=== PATIENT | male | born 1945 | race Caucasian/White ===

== ENCOUNTER 2017-02-02 08:04 | Day surgery (SDC) | payer MEDICARE ==
[~2017-02-02] VITALS: Ht 172.7 cm; Wt 83.9 kg
[~2017-02-02 08:04] MED LIST: ACETYLCHOLINE OPHTH SOLN 1% 2ML (MIOCHOL-E) As Ordered ONE; AMLO10TA2 PO; ASPI1TAB PO; ATOR40TA75 PO; BALANCED SALT IRRIGATION SOLUTION 500ML BAG (FOR OR EYE MACHINE) As Ordered ONE; CEFUROXIME 1MG/0.1ML INTRACAMERAL INJ As Ordered ONE; DUOVISC (0.50ML VISCOAT/0.55ML PROVISC) OPHTH KIT As Ordered ONE; FINA5TAB2 PO; LIDOCAINE 0.75%/EPINEPHRINE 0.025% IN BSS 1ML SYR INTRACAMERAL (OR ONLY) As Ordered ONE; MIDAZOLAM INJ 2 MG/2 ML VIAL (J2250) As Ordered ONE; OFLOXACIN 0.3 % (OCUFLOX) OPTH SOL 5ML XX ONE; PHENYLEPHRINE 2.5% OPHTH SOL 2ML XX ONE; POVIDONE-IODINE 5% OPHTH PREP SOL 30ML As Ordered ONE; PROPARACAINE 0.5% OPHTH SOL 15ML XX ONE; TRIAMTERENE-HCTZ PO; TROPICAMIDE 1% OPHTH SOLN 2ML XX ONE; fentaNYL 100 MCG/2 ML INJECTION (J3010) As Ordered ONE
[2017-02-02] MEDS ORDERED: LR 1,000 ML IV ONE (08:15)
[2017-02-02 11:05] VITALS: BP 121/72
--- NOTE | 2017-02-05 08:39 | RO ---
DATE OF PROCEDURE: 02/02/2017 PREOPERATIVE DIAGNOSIS: Visually significant nuclear sclerotic cataract left eye. POSTOPERATIVE DIAGNOSIS: Visually significant nuclear sclerotic cataract left eye. PROCEDURE: Cataract extraction with use of phacoemulsification, and placement of intraocular lens, AU00T0, 23.0 D, left eye. SURGEON: Aldo Daniel DO EVALUATOR: ANESTHESIA: Local with monitored anesthesia care (MAC). COMPLICATIONS: None. POSTOPERATIVE CONDITION: Stable. INDICATION FOR SURGERY: Blurred vision left eye affecting patient's activities of daily living. DESCRIPTION OF PROCEDURE: The patient was seen in the preoperative area and properly identified. The correct operative eye was identified and marked. Attention was turned to that eye. The patient received topical antibiotics in the preoperative area. The patient then received topical dilating drops consisting of Tropicamide and Phenylephrine. The patient was then transferred to the operating room. The correct side was re-identified. The patient received topical anesthetics and antibiotics on the surface of the eye. The eye was prepped and draped in a sterile fashion. The upper and lower eyelids were isolated with Tegaderm tape, and the lids were held open with an adjustable speculum. Using a sideport blade, a paracentesis incision was made. Intraocular preservative-free lidocaine was then injected into the anterior chamber. Viscoelastic was then injected into the anterior chamber through the paracentesis. Using a 2.65 mm sharp-tipped keratome, the anterior chamber was entered via a temporal clear corneal incision. A continuous curvilinear capsulorrhexis was created with the aid of a 26g cystotome and utrata forceps. Hydrodissection was performed with balanced salt solution (BSS) on a blunt cannula until the nucleus was freely mobile. The crystalline lens was phacoemulsified and aspirated. Additional cohesive viscoelastic was placed into the capsular bag to deepen it. An AU00T0, 23.0 D lens was placed into the capsular bag and confirmed by visualizing the continuous curvilinear capsulorrhexis. Additional irrigation and aspiration was used to remove cortical material and remaining viscoelastic. The clear corneal incision was hydrated with BSS on a blunt cannula. The lens was well positioned. The incisions were then tested for leaks and found to be negative. The eye was then palpated for appropriate pressure and adjusted accordingly with BSS. The eyelid speculum was carefully removed. A shield was placed over the eye. The patient tolerated the procedure well and was discharged to the recovery unit in a stable condition. KAL
[2017-03-23] MEDS ORDERED: MELO15TA4 PO (08:40)
== END 2017-02-02 11:14 | disposition home or self-care (01) ==
LOC: M SDC 08:04
PROVIDERS: ATTEND Ophthalmology
DX: H25.12 Age-related nuclear cataract, left eye (principal); I10 Essential (primary) hypertension; E78.5 Hyperlipidemia, unspecified; Z79.82 Long term (current) use of aspirin; Z79.899 Other long term (current) drug therapy
CPT/HCPCS: 66984; J2250; J3010; V2632

== ENCOUNTER → 2017-02-16 | Day surgery (SDC) | payer MEDICARE ==
[~2017-02-16] VITALS: Ht 172.7 cm; Wt 83.9 kg
[~2017-02-16] MED LIST changes: +HEALON DUET (HEALON 10MG/ML 0.55ML & HEALON ENDOCOAT 30MG/ML 0.85ML) As Ordered ONE; +LIDOCAINE 0.5% SDV INJ 50 ML VIAL SQ ONE; +LR 1,000 ML IV ONE; +LR 500 ML ONE; +MELO15TA4 PO; +OFLOXACIN 0.3 % (OCUFLOX) OPTH SOL 5ML OD ONE; -OFLOXACIN 0.3 % (OCUFLOX) OPTH SOL 5ML XX ONE; +PHENYLEPHRINE 2.5% OPHTH SOL 2ML OD ONE; -PHENYLEPHRINE 2.5% OPHTH SOL 2ML XX ONE; +PROPARACAINE 0.5% OPHTH SOL 15ML OD ONE; -PROPARACAINE 0.5% OPHTH SOL 15ML XX ONE; +TROPICAMIDE 1% OPHTH SOLN 2ML OD ONE; -TROPICAMIDE 1% OPHTH SOLN 2ML XX ONE
[2017-02-16 10:49] VITALS: BP 165/95
--- NOTE | 2017-02-17 15:28 | RO ---
DATE OF PROCEDURE: 02/16/2017 PREOPERATIVE DIAGNOSIS: Visually significant nuclear sclerotic cataract right eye. POSTOPERATIVE DIAGNOSIS: Visually significant nuclear sclerotic cataract right eye. PROCEDURE: Cataract extraction with use of phacoemulsification, and placement of intraocular lens, AU00T0 23.5 D, right eye. SURGEON: Aldo Daniel DO SEMICONDUCTORS WAFER BREAKER: ANESTHESIA: Local with monitored anesthesia care (MAC). COMPLICATIONS: None. POSTOPERATIVE CONDITION: Stable. INDICATION FOR SURGERY: Blurred vision right eye affecting patient's activities of daily living. DESCRIPTION OF PROCEDURE: The patient was seen in the preoperative area and properly identified. The correct operative eye was identified and marked. Attention was turned to that eye. The patient received topical antibiotics in the preoperative area. The patient then received topical dilating drops consisting of Tropicamide and Phenylephrine. The patient was then transferred to the operating room. The correct side was re-identified. The patient received topical anesthetics and antibiotics on the surface of the eye. The eye was prepped and draped in a sterile fashion. The upper and lower eyelids were isolated with Tegaderm tape, and the lids were held open with an adjustable speculum. Using a sideport blade, a paracentesis incision was made. Intraocular preservative-free lidocaine was then injected into the anterior chamber. Viscoelastic was then injected into the anterior chamber through the paracentesis. Using a 2.6 mm sharp-tipped keratome, the anterior chamber was entered via a temporal clear corneal incision. A continuous curvilinear capsulorrhexis was created with the aid of a 26g cystotome and utrata forceps. Hydrodissection was performed with balanced salt solution (BSS) on a blunt cannula until the nucleus was freely mobile. The crystalline lens was phacoemulsified and aspirated. Additional cohesive viscoelastic was placed into the capsular bag to deepen it. An AU00T0, 23.5 D was placed into the capsular bag and confirmed by visualizing the continuous curvilinear capsulorrhexis. Additional irrigation and aspiration was used to remove cortical material and remaining viscoelastic. The clear corneal incision was hydrated with BSS on a blunt cannula. The lens was well positioned. The incisions were then tested for leaks and found to be negative. The eye was then palpated for appropriate pressure and adjusted accordingly with BSS. The eyelid speculum was carefully removed. A shield was placed over the eye. The patient tolerated the procedure well and was discharged to the recovery unit in a stable condition. KAL
== END | disposition home or self-care (01) ==
LOC: M SDC 10:10
PROVIDERS: ATTEND Ophthalmology
DX: H25.11 Age-related nuclear cataract, right eye (principal); I10 Essential (primary) hypertension; E78.5 Hyperlipidemia, unspecified; Z79.82 Long term (current) use of aspirin; Z79.899 Other long term (current) drug therapy
CPT/HCPCS: 66984; J2250; J3010; V2632

== ENCOUNTER → 2017-03-20 | Outpatient (REF) | payer MEDICARE ==
[~2017-03-20] MED LIST changes: -ACETYLCHOLINE OPHTH SOLN 1% 2ML (MIOCHOL-E) As Ordered ONE; -BALANCED SALT IRRIGATION SOLUTION 500ML BAG (FOR OR EYE MACHINE) As Ordered ONE; -CEFUROXIME 1MG/0.1ML INTRACAMERAL INJ As Ordered ONE; -DUOVISC (0.50ML VISCOAT/0.55ML PROVISC) OPHTH KIT As Ordered ONE; -HEALON DUET (HEALON 10MG/ML 0.55ML & HEALON ENDOCOAT 30MG/ML 0.85ML) As Ordered ONE; -LIDOCAINE 0.5% SDV INJ 50 ML VIAL SQ ONE; -LIDOCAINE 0.75%/EPINEPHRINE 0.025% IN BSS 1ML SYR INTRACAMERAL (OR ONLY) As Ordered ONE; -LR 1,000 ML IV ONE; -LR 500 ML ONE; -MIDAZOLAM INJ 2 MG/2 ML VIAL (J2250) As Ordered ONE; -OFLOXACIN 0.3 % (OCUFLOX) OPTH SOL 5ML OD ONE; -PHENYLEPHRINE 2.5% OPHTH SOL 2ML OD ONE; -POVIDONE-IODINE 5% OPHTH PREP SOL 30ML As Ordered ONE; -PROPARACAINE 0.5% OPHTH SOL 15ML OD ONE; -TROPICAMIDE 1% OPHTH SOLN 2ML OD ONE; -fentaNYL 100 MCG/2 ML INJECTION (J3010) As Ordered ONE
== END ==
LOC: M LAB REF 13:16
PROVIDERS: ATTEND Emergency Medicine
DX: L82.0 Inflamed seborrheic keratosis (principal)

== ENCOUNTER 2017-03-24 11:47 | Day surgery (SDC) | payer MEDICARE ==
[~2017-03-24] VITALS: Ht 170.2 cm; Wt 83.0 kg
[2017-03-24] MEDS ORDERED: LR 1,000 ML IV ONE (12:00)
[2017-03-24] MEDS ORDERED: LIDOCAINE 1% SDV INJ 30 ML VIAL As Ordered ONE (12:47)
[2017-03-24] MEDS ORDERED: fentaNYL 100 MCG/2 ML INJECTION (J3010) As Ordered ONE (13:14)
[2017-03-24] MEDS ORDERED: MIDAZOLAM INJ 2 MG/2 ML VIAL (J2250) As Ordered ONE (13:14)
[2017-03-24] MEDS ORDERED: LIDOCAINE 2% INJ 100 MG/5 ML SDV (FOR ANES.) As Ordered ONE (13:56)
[2017-03-24] MEDS ORDERED: PROPOFOL 200 MG/20 ML VIAL As Ordered ONE (13:56)
[2017-03-24 15:10] VITALS: BP 143/77
--- NOTE | 2017-03-24 16:13 | RO ---
DATE OF PROCEDURE: 03/24/2017 PREPROCEDURE DIAGNOSIS: Unexplained syncope. POSTPROCEDURE DIAGNOSIS: Unexplained syncope. FINDINGS: Unexplained syncope. PROCEDURE: Implantation of Biotronik implantable loop recorder. SURGEON: Ji Edwards MD CAMP COOK: None. ANESTHESIA: Lidocaine 1% local (approximately 7-1/2 mL) 1% and monitored anesthetic care. No specimens. Estimated blood loss: Less than 1 mL. No blood products replaced. No drains. No complications. DESCRIPTION OF PROCEDURE: The patient was prepped and draped over the left anterior chest. Lidocaine 1% was used for local anesthetic. An incision approximately 1-1/2 cm in length was made with a #15 blade in the third left interspace. The insertion tool tunnel tool was then used in an approximately 45-degree oblique direction (left lateral-caudal) to tunnel in the subcutaneous fat but parallel to the skin. The tunnel tool was then removed and then the insertion tool with loop recorder was placed into the pocket. The plastic insertion tool was removed leaving the loop recorder in place. The initial R wave amplitude was 1.66 millivolts. The deep layer was then closed using individual sutures consisting of #2-0 Vicryl. The skin was then approximated using a continuous suture consisting of #4-0 Biosyn as the subcutaneous layer and this was used to just approximate the skin. Next, two layers of Dermabond was applied. Next, the Biosyn suture was removed. Once the Dermabond was dried, Mastisol was placed above and below the incision and several Steri-Strips were applied crosswise across the incision. The patient tolerated the procedure well without any immediate complications. The implanted loop recorder implanted was a [employer] BioMonitor 2-AF with reference number [id number] and serial number [id number]. Copy To: Dr. Pedro Flowers
== END 2017-03-24 15:15 | disposition home or self-care (01) ==
LOC: M SDC 11:47
PROVIDERS: ATTEND Internal Medicine Cardiovascular Disease
DX: R55 Syncope and collapse (principal); I10 Essential (primary) hypertension; E78.5 Hyperlipidemia, unspecified; Z79.82 Long term (current) use of aspirin; Z79.899 Other long term (current) drug therapy; N40.0 Benign prostatic hyperplasia without lower urinary tract symptoms
CPT/HCPCS: 33282; C1764; J0690; J2250; J3010

== ENCOUNTER 2018-10-03 12:27 | Day surgery (SDC) | payer MEDICARE ==
[~2018-10-03] VITALS: Ht 170.2 cm; Wt 88.5 kg
[~2018-10-03 12:27] MED LIST changes: -AMLO10TA2 PO; +AMLO10TA5 PO; -ASPI1TAB PO; +ASPI81TA26 PO; +FURO20TA2 PO; +IRON325T2 PO; +LR 1,000 ML IV ONE; +MELO15TA28 PO; -MELO15TA4 PO; +WARF-23 PO; +ceFAZolin SOD 1 GM in D5W MINI-BAG PLUS 50 ML IV ONE
[2018-10-03] MEDS ORDERED: LIDOCAINE 1% SDV INJ 30 ML VIAL As Ordered ONE (13:10)
[2018-10-03 13:18] LABS: INR 1.48; PROTHROMBIN TIME 18.2 SECONDS (12.1-14.4)
[2018-10-03] MEDS ORDERED: TRIA37.5 PO (13:21)
[2018-10-03] MEDS ORDERED: fentaNYL 100 MCG/2 ML INJECTION (J3010) As Ordered ONE (14:47)
[2018-10-03] MEDS ORDERED: PROPOFOL 200 MG/20 ML VIAL As Ordered ONE (14:47)
[2018-10-03] MEDS ORDERED: LIDOCAINE 2% INJ 100 MG/5 ML SDV (FOR ANES.) As Ordered ONE (14:47)
[2018-10-03] MEDS ORDERED: MIDAZOLAM INJ 2 MG/2 ML VIAL (J2250) As Ordered ONE (14:48)
[2018-10-03 16:35] VITALS: BP 132/75
--- NOTE | 2018-10-03 16:52 | RO ---
DATE OF PROCEDURE: 10/03/2018 PREOPERATIVE DIAGNOSIS: Implantable loop recorder in situ. POSTOPERATIVE DIAGNOSIS: Implantable loop recorder in situ. FINDINGS: Implantable loop recorder in situ. OPERATIVE PROCEDURE: Explantation of Biotronik implantable loop recorder. SURGEON: Ji Edwards MD RAISIN WASHER: None. ANESTHESIA: Lidocaine 1% local/monitored anesthetic care. SPECIMENS: Biotronik implantable loop recorder. ESTIMATED BLOOD LOSS: 1 mL. BLOOD PRODUCTS REPLACED: None. DRAINS: None. COMPLICATIONS: None. DESCRIPTION OF PROCEDURE: The patient was prepped and draped over the left anterior chest. An incision approximately 3/4 of an inch was made perpendicular to the loop recorder at the level of the junction where the body and the tail of the implantable loop recorder joined. The incision was made with a #15 blade. I used electrocautery to get down to the loop recorder. I was able to freight manager the loop recorder with a snap and was able to pry the tail out of the incision. From there, I was able to pull the remainder of the loop recorder out all in one piece. The deep layer was closed using two individual sutures consisting of #2-0 Vicryl. I used two additional individual #3-0 Vicryl sutures to close the more superficial layer and one #4-0 Biosyn suture to approximate the skin at the medial aspect of the incision. Next, two layers of Dermabond was applied over the incision. After the Dermabond was dry, three Steri-Strips which were cut in half were placed perpendicular along the length of the incision and prior to applying the Steri-Strips Mastisol was applied to the skin being careful not get the Mastisol on the Dermabond. The patient tolerated the procedure well without any immediate complications.
== END 2018-10-03 16:47 | disposition home or self-care (01) ==
LOC: M SDC 12:27
PROVIDERS: ATTEND Internal Medicine Cardiovascular Disease
DX: Z45.89 Encounter for adjustment and management of other implanted devices (principal); R55 Syncope and collapse; I48.91 Unspecified atrial fibrillation; I10 Essential (primary) hypertension; I25.10 Atherosclerotic heart disease of native coronary artery without angina pectoris; E78.5 Hyperlipidemia, unspecified; N40.0 Benign prostatic hyperplasia without lower urinary tract symptoms; Z79.01 Long term (current) use of anticoagulants; Z79.899 Other long term (current) drug therapy
CPT/HCPCS: 33286; 36415; 85610; J0690; J2250; J3010

== ENCOUNTER → 2019-02-04 | Outpatient (CLI) | payer MEDICARE ==
[~2019-02-04] MED LIST changes: -LR 1,000 ML IV ONE; +TRIA37.5 PO; -ceFAZolin SOD 1 GM in D5W MINI-BAG PLUS 50 ML IV ONE
--- NOTE | 2019-02-05 08:16 | REP ---
MAXILLOFACIAL CT STUDY WITHOUT CONTRAST: HISTORY: Chronic pansinusitis. Comparison maxillofacial CT study is retrieved from January 03, 2017 done at [facility]. CT FINDINGS: There is a healed but displaced impacted and comminuted fracture of the nasal bone. This is unchanged in position from the prior study. Bony orbital margins are intact. Zygomatic arches are intact. No other facial fracture is appreciated. No intraorbital fluid collection or mass is observed. There is mild mucosal thickening affecting the maxillary sinuses bilaterally. This is essentially unchanged. There are patchy areas of opacification in the ethmoid air cells bilaterally. This is improved in appearance from the December 2016 study. The sphenoid sinuses are clear except for a tiny area of mucosal thickening on the right. There is partial opacification and mucosal thickening in the left frontal sinus. The left ostiomeatal complex is patent although there is some mucosal thickening. The right ostiomeatal complex is occluded by mucosal thickening. No nasal polyp is appreciated. There appears to be a small perforation in the superior portion of the nasal septum. This portion of the nasal septum was fractured at the time of the prior study. No nasal polyp is appreciated. There is a radiolucent lesion on either side of the midline in the anterior maxilla which is edentulous. 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 This is unchanged from the 2017 study. It measures 1.5 cm. IMPRESSION: Poly sinusitis changes as above. Old nasal bone and nasal septal fracture. There is a stable radiolucent lesion in the anterior aspect of the maxilla on either side of the midline unchanged from the prior study and measuring 1.5 cm in greatest diameter. Electronically Signed by Edilberto Luz MD 02/05/2019 10:00 A
== END ==
LOC: M RAD 07:59
PROVIDERS: ATTEND Specialist
DX: J32.4 Chronic pansinusitis (principal); J34.2 Deviated nasal septum

== ENCOUNTER 2019-03-21 06:50 | Day surgery (SDC) | payer MEDICARE ==
[~2019-03-21] VITALS: Ht 172.7 cm; Wt 83.5 kg
[~2019-03-21 06:50] MED LIST changes: +LIDOCAINE 1% MDV 20ML VIAL SQ PRN; +LIDOCAINE W/EPINEPHRINE 1% 20ML VIAL As Ordered ONE; +LR 1,000 ML IV ONE; +METHYLENE BLUE 0.5% (5MG/ML) 10 ML AMP (PROVAYBLUE)(Q9968 PER 1MG) As Ordered ONE; +OXYMETAZOLINE NASAL SPRAY (AFRIN) As Ordered ONE
[2019-03-21] MEDS ORDERED: PROPOFOL 200 MG/20 ML VIAL As Ordered ONE (07:17)
[2019-03-21] MEDS ORDERED: ONDANSETRON 4MG/2ML VIAL (J2405) As Ordered ONE (07:17)
[2019-03-21] MEDS ORDERED: dexameTHASONE 4 MG/ML 1ML VIAL (J1100) As Ordered ONE (07:17)
[2019-03-21] MEDS ORDERED: LIDOCAINE 2% INJ 100 MG/5 ML SDV (FOR ANES.) As Ordered ONE (08:09)
[2019-03-21] MEDS ORDERED: ROCURONIUM BROMIDE 50 MG/5 ML VIAL As Ordered ONE (08:09)
[2019-03-21] MEDS ORDERED: MIDAZOLAM INJ 2 MG/2 ML VIAL (J2250) As Ordered ONE (08:11)
[2019-03-21] MEDS ORDERED: fentaNYL 100 MCG/2 ML INJECTION (J3010) As Ordered ONE (08:11)
[2019-03-21 08:12] LABS: INR 1.29; PROTHROMBIN TIME 15.8 SECONDS (11.8-14.0)
[2019-03-21] MEDS ORDERED: PHENYLephrine HCL 500 MCG/5 ML (100MCG/ML) SYRINGE (J2370) As Ordered ONE (09:20)
[2019-03-21] MEDS ORDERED: ePHEDrine SULFATE 25 MG/5 ML(5MG/ML) SYRINGE As Ordered ONE (09:28)
[2019-03-21] MEDS ORDERED: SUGAMMADEX SODIUM 500 MG/5 ML VIAL (BRIDION) As Ordered ONE (09:52)
[2019-03-21] MEDS ORDERED: ACETAMINOPHEN 1000MG 100ML IV BTL (OFIRMEV) (J0131 PER 10MG) As Ordered ONE (09:57)
[2019-03-21] MEDS ORDERED: ONDANSETRON 4MG/2ML VIAL (J2405) IV PRN (11:00)
[2019-03-21] MEDS ORDERED: IBUPROFEN 800 MG TAB PO PRN (11:00)
[2019-03-21] MEDS ORDERED: LR 1,000 ML IV SCH (11:00)
[2019-03-21] MEDS ORDERED: PERCOCET 5MG/325MG TAB PO PRN (11:00)
[2019-03-21] MEDS ORDERED: fentaNYL 100 MCG/2 ML INJECTION (J3010) IV PRN (11:00)
[2019-03-21 12:05] VITALS: BP 171/79
--- NOTE | 2019-03-22 23:11 | ECGEPIP ---
[facility] Test Date: 2019-03-21 Pat Name: IKE ALDRICH Department: Room: - Gender: Male Banquet Chef: JULIAN : 1945 Requested By: Tremaine Mcclendon Order Number: [id number] Reading MD: Artie Francis Measurements Intervals [place] Rate: 58 P: 66 AR: 139 QRS: 59 QRSD: 114 T: 69 QT: 449 QTc: 442 Interpretive Statements SINUS BRADYCARDIA MODERATE INTRAVENTRICULAR CONDUCTION DELAY No prior tracing in the system Electronically Signed on 03-22-2019 23:11:37 EDT by Artie Francis
== END 2019-03-21 12:17 | disposition home or self-care (01) ==
LOC: M SDC 06:50
PROVIDERS: ATTEND Specialist
DX: J34.2 Deviated nasal septum (principal); J31.0 Chronic rhinitis; I48.91 Unspecified atrial fibrillation; I25.10 Atherosclerotic heart disease of native coronary artery without angina pectoris; I10 Essential (primary) hypertension; E78.5 Hyperlipidemia, unspecified; N40.0 Benign prostatic hyperplasia without lower urinary tract symptoms; Z79.01 Long term (current) use of anticoagulants; Z95.1 Presence of aortocoronary bypass graft; Z87.891 Personal history of nicotine dependence; Z92.3 Personal history of irradiation; Z79.899 Other long term (current) drug therapy
CPT/HCPCS: 30140; 30520; 36415; 85610; 88300; 93005; J0131; J1100; J2250; J2370; J2405; J3010; Q9968

== ENCOUNTER → 2020-07-22 | Outpatient (REF) | payer MEDICARE ==
[~2020-07-22] MED LIST changes: -AMLO10TA5 PO; +AMLO1TAB25 PO; -LIDOCAINE 1% MDV 20ML VIAL SQ PRN; -LIDOCAINE W/EPINEPHRINE 1% 20ML VIAL As Ordered ONE; -LR 1,000 ML IV ONE; -METHYLENE BLUE 0.5% (5MG/ML) 10 ML AMP (PROVAYBLUE)(Q9968 PER 1MG) As Ordered ONE; -OXYMETAZOLINE NASAL SPRAY (AFRIN) As Ordered ONE
[2020-07-22 18:10] LABS: APPEARANCE, URINE MANUAL TURBID (CLEAR); COLOR, URINE MANUAL BROWN (YELLOW)
[2020-07-22 18:11] LABS: BILIRUBIN, URINE MANUAL NEGATIVE (NEGATIVE); BLOOD URINE MANUAL POSITIVE (NEGATIVE); GLUCOSE, URINE (UA) MANUAL NEGATIVE (NEGATIVE); KETONE, URINE MANUAL NEGATIVE (NEGATIVE); LEUKOCYTE ESTERASE, URINE MAN POSITIVE (NEGATIVE); NITRITE, URINE MANUAL POSITIVE (NEGATIVE); PH,URINE MAN 6.5 UNITS (5.0 - 7.0); PROTEIN, URINE MANUAL 2+ mg/dL (NEGATIVE); SPECIFIC GRAVITY,URINE MANUAL 1.015 (1.002-1.035); UROBILINOGEN, URINE MANUAL NORMAL (NORMAL)
[2020-07-22 19:56] LABS: BACTERIA, URINE LARGE AMOUNT; SQUAMOUS EPITHELIAL CELL URINE NONE SEEN /hpf (SMALL AMT); TRANSITIONAL EPI CELLS, URINE SMALL AMOUNT /hpf
[2020-07-22 20:04] LABS: HYALINE CAST, URINE NONE SEEN /lpf (0-1); RBC, URINE TNTC /hpf (0-3); WBC, URINE TNTC /hpf (0-3)
== END ==
LOC: M LAB REF 17:14
PROVIDERS: ATTEND Nurse Practitioner Family
DX: R31.9 Hematuria, unspecified (principal)

== ENCOUNTER → 2020-09-01 | Outpatient (REF) | payer MEDICARE | LOC: M SMT 15:15 | PROVIDERS: ATTEND Urology | DX: R31.0 Gross hematuria (principal) | CPT/HCPCS: 87088; 87186; G0463 ==

== ENCOUNTER → 2020-10-09 | Outpatient (REF) | payer MEDICARE | LOC: M SMT 16:58 | PROVIDERS: ATTEND Urology | DX: D49.4 Neoplasm of unspecified behavior of bladder (principal); Z79.899 Other long term (current) drug therapy ==

== ENCOUNTER → 2020-11-05 | Outpatient (CLI) | payer MEDICARE ==
[~2020-11-05] MED LIST changes: +ECOT81TA5 PO; +WARF-18 PO
--- NOTE | 2020-11-05 15:26 | REP ---
INDICATION: ESSENTIAL (PRIMARY) HYPERTENSION. COMPARISON: Comparison chest x-rays have been retrieved from [facility] dated May 18, 2018, May 19, 2018, and May 21, 2018. TECHNIQUE: Two views.. FINDINGS: Patient is status post prior median sternotomy. A prosthetic right shoulder joint is noted. The heart is not enlarged. There is bibasilar linear fibrosis. Pulmonary vasculature is not increased. There is a nodular density in the right perihilar region today. This may be a perihilar vessel but I cannot exclude a pulmonary nodule. Comparison radiographs were portably obtained at lesser level of inspiration with atelectatic changes in this region and are not helpful for comparison in this regard. Lung ocasio are otherwise clear. No acute bony abnormality is seen. IMPRESSION: Possible right perihilar nodule. Recommend chest CT study.. <Electronically signed by Arnie Luz > 11/05/20 152
== END ==
LOC: M RAD 09:03
PROVIDERS: ATTEND Nurse Practitioner Family
DX: R91.8 Other nonspecific abnormal finding of lung field (principal); I10 Essential (primary) hypertension; Z96.611 Presence of right artificial shoulder joint

== ENCOUNTER 2020-11-11 10:46 | Day surgery (SDC) | payer MEDICARE ==
[~2020-11-11] VITALS: Ht 172.7 cm; Wt 84.8 kg
[~2020-11-11 10:46] MED LIST changes: +LIDOCAINE 1% MDV 20ML VIAL SQ PRN; +LR 1,000 ML IV ONE; +ceFAZolin SOD 2 GM in IV 1 EA IV ONE
[2020-11-11 11:23] LABS: INR 1.33; PROTHROMBIN TIME 16.8 SECONDS (12.5-14.3)
[2020-11-11] MEDS ORDERED: propofoL 200 MG/20 ML VIAL As Ordered ONE (13:38)
[2020-11-11] MEDS ORDERED: ONDANSETRON 4MG/2ML VIAL As Ordered ONE (13:38)
[2020-11-11] MEDS ORDERED: ROCURONIUM BROMIDE 50 MG/5 ML VIAL As Ordered ONE (13:38)
[2020-11-11] MEDS ORDERED: MIDAZOLAM INJ 2MG/2ML VIAL (J2250 PER 1MG) As Ordered ONE (13:38)
[2020-11-11] MEDS ORDERED: fentaNYL 100 MCG/2 ML INJECTION (J3010) As Ordered ONE (13:38)
[2020-11-11] MEDS ORDERED: dexameTHASONE 4 MG/ML 1ML VIAL (J1100 PER 1MG) As Ordered ONE (13:38)
[2020-11-11] MEDS ORDERED: LIDOCAINE 2% 100MG/5ML SDV (FOR ANES.) As Ordered ONE (13:38)
[2020-11-11] MEDS ORDERED: KETOROLAC 60MG 2ML VIAL As Ordered ONE (13:38)
[2020-11-11] MEDS ORDERED: ACETAMINOPHEN 1000MG 100ML IV BTL (OFIRMEV) (J0131 PER 10MG) As Ordered ONE (13:38)
[2020-11-11] MEDS ORDERED: SUGAMMADEX SODIUM 500 MG/5 ML VIAL (BRIDION) As Ordered ONE (13:47)
[2020-11-11] MEDS ORDERED: CONRAY-60 60% 50ML VIAL (Q9961) As Ordered ONE (16:13)
--- NOTE | 2020-11-11 16:36 | REP ---
INDICATION: URETERAL STENT PLACEMENT, IN OR 5. COMPARISON: None. TECHNIQUE: Intraoperative fluoroscopic imaging using C-arm technique. FINDINGS: Left ureteral stent in satisfactory position. Total fluoroscopic time 8 seconds. IMPRESSION: Status post left ureteral stent placement. <Electronically signed by Tim Winchester > 11/11/20 [id number]
[2020-11-11] MEDS ORDERED: BACT800T5 PO (16:46)
[2020-11-11] MEDS ORDERED: ONDANSETRON 4MG/2ML VIAL IV PRN (18:15)
[2020-11-11] MEDS ORDERED: LR 1,000 ML IV SCH (18:15)
[2020-11-11] MEDS ORDERED: fentaNYL 100 MCG/2 ML INJECTION (J3010) IV PRN (18:15)
[2020-11-11] MEDS ORDERED: oxyCODONE 5MG TAB PO PRN (18:15)
[2020-11-11] MEDS ORDERED: ACETAMINOPHEN TAB 650MG DOSE (2X325MG) PO PRN (18:20)
[2020-11-11 18:50] VITALS: BP 145/73
--- NOTE | 2020-11-12 09:43 | RO ---
OPERATIVE NOTE DATE OF OPERATION: 11/11/2020 PREOPERATIVE DIAGNOSIS: Bladder tumors. POSTOPERATIVE DIAGNOSIS: Bladder tumors. PROCEDURE: Cystoscopy, transurethral resection of bladder tumors (between 2 and 5 cm), left retrograde pyelogram with intraoperative interpretation of images, left ureteral stent placement, examination under anesthesia. SURGEON: Nael Russell MD WHOLESALE BUYER: None. ANESTHESIA: General. OPERATIVE INDICATIONS: This is a 75-year-old male who on recent office cystoscopy was found to have few bladder tumors. He was brought to the operating room today for treatment. DESCRIPTION OF PROCEDURE: The patient was brought to the operating room and general anesthesia was induced. Prophylactic antibiotics were infused. He was placed in dorsal lithotomy position. Prior to draping the patient I did perform bimanual digital rectal exam under anesthesia and it was notable for mild prostate enlargement. There were no prostate nodules. There were no palpable bladder masses and the bladder was freely mobile. The patient was then prepped and draped in usual sterile fashion. A resectoscope was inserted in the urethral meatus and advanced into the bladder using a visual obturator. The bladder was thoroughly examined. Of note the patient had about four bladder tumors totaling up to between 2 to 5 cm. They were located near the dome as well as on the left lateral wall and near the trigone just lateral to the ureteral orifice. The patient also had a very trabeculated bladder with several small diverticula. Once all the tumors inside the bladder were identified a bipolar loop was utilized to resect all of them. I did have to resect over the left ureteral orifice as one of the tumors was growing just next to it. Since I resected over the ureteral orifice I did decide to place a left ureteral stent. A retrograde pyelogram was performed and was notable for mild left hydroureteronephrosis with no filling defects and no extravasation. I advanced a guidewire up the left collecting system. I then advanced a 7-Trinidadian x 22-32 cm JJ ureteral stent over the wire. The wire was removed and there were adequate curls of the stent in left renal pelvis and bladder. After all the tumors had been resected the base resection was cauterized with good hemostasis. Once satisfied with hemostasis I then advanced an 18-Trinidadian Irby catheter into the bladder and balloon was filled with 10 mL sterile water. The catheter was connected to gravity drainage and this marked the conclusion of the procedure. The patient was taken out of the dorsal lithotomy position, awakened from anesthesia and transported to the recovery room in stable condition. ESTIMATED BLOOD LOSS: 5 mL. COMPLICATIONS: None. SPECIMEN: Bladder tumors. PLAN: The patient will follow up in urology clinic in one week for catheter removal. He will also have his stent taken out in 3-4 weeks. KAL
== END 2020-11-11 18:50 | disposition home or self-care (01) ==
LOC: M SDC 10:46
PROVIDERS: ATTEND Urology
DX: C67.9 Malignant neoplasm of bladder, unspecified (principal); I48.91 Unspecified atrial fibrillation; I25.10 Atherosclerotic heart disease of native coronary artery without angina pectoris; I10 Essential (primary) hypertension; E78.5 Hyperlipidemia, unspecified; Z87.891 Personal history of nicotine dependence; Z79.01 Long term (current) use of anticoagulants; Z79.899 Other long term (current) drug therapy
CPT/HCPCS: 36415; 52235; 52332; 74420; 85610; 88305; 88341; 88342; C1769; C2617; J0131; J0690; J1100; J1885; J2250; J2405; J3010; Q9961

== ENCOUNTER → 2020-11-25 | Outpatient (CLI) | payer MEDICARE ==
[~2020-11-25] MED LIST changes: +BACT800T5 PO; +ISOVUE-370 76% 100ML VIAL As Ordered ONE; -LIDOCAINE 1% MDV 20ML VIAL SQ PRN; -LR 1,000 ML IV ONE; -ceFAZolin SOD 2 GM in IV 1 EA IV ONE
--- NOTE | 2020-11-26 13:13 | REP ---
INDICATION: EVAL PULMONARY NODULE SEEN ON CXR COMPARISON: No prior CTs for comparison TECHNIQUE: Standard helical technique after the intravenous administration of 100 cc Isovue 370 FINDINGS: There is no mediastinal or hilar adenopathy. There are no pleural or pericardial effusions. The imaged upper abdomen is within normal limits. The imaged osseous structures are within normal limits. Evaluation of the lung ocasio shows biapical pleuroparenchymal scarring right greater than left. There are multiple pulmonary nodules vary in size from 2 mm to 2.2 cm. This large nodule is seen in the medial aspect of the lingula in a retro cardiac position. In addition to these multiple noncalcified nodules there is a calcified nodule in the right upper lobe anteriorly and some potentially calcifying nodules. IMPRESSION: There are multiple pulmonary nodules some calcified/calcifying and others noncalcified as described above. Neoplastic change is suspected whether benign or malignant cannot be determined by this exam. There is no revised Fleischner society criteria on the recommendation for follow-up of such diffuse findings. Follow-up will be recommended on the largest nodule seen in the lingula for which PET-CT is recommended along with possible tissue sampling. Category 4 B. Pulmonary consultation is suggested. <Electronically signed by Niraj Liu > 11/26/20 [id number]
== END ==
LOC: M RAD 17:28
PROVIDERS: ATTEND Nurse Practitioner Family
DX: R91.1 Solitary pulmonary nodule (principal)
CPT/HCPCS: 71260; Q9967

== ENCOUNTER → 2021-01-11 | Outpatient (CLI) | payer MEDICARE ==
[~2021-01-11] MED LIST changes: +IRON18TA PO; -ISOVUE-370 76% 100ML VIAL As Ordered ONE
--- NOTE | 2021-01-12 09:36 | REP ---
INDICATION: STAGING MELANOMA C43.8. Chest CT showed multiple pulmonary nodules. Metastatic malignant melanoma on pathology from bladder tumor resection. Melanoma initially diagnosed in 2017 post axillary resection. There is apparently a history of brain metastasis. No recent brain imaging. COMPARISON: Comparison CT study of the chest is from November 25, 2020.. TECHNIQUE: Fifty-one minutes following the intravenous injection of a 8.00 mCi dose of F-18 FDG, three-dimensional PET scintigraphy is acquired from the skull vertex to the toes. Triplanar noncontrast CT scanning is acquired through the same anatomic range for attenuation correction, and image registration with scan parameters optimized to minimize radiation exposure to the patient. PET scintigraphy and CT datasets were fused and displayed on a workstation with multiplanar and projection display capability. FINDINGS: There is evidence of intracranial metastatic disease with multifocal areas of relatively hypo metabolic uptake in the brain parenchyma involving left parietal, bilateral frontal lobes. Accompanying head CT images show fairly large areas of vasogenic edema in the left frontal lobe and to a lesser extent in the left parietal lobe. Small areas seen in the right frontal lobe posteriorly. This corresponds with the history given by the patient's that a he has brain metastatic disease. The neck soft tissues are unremarkable. In the thorax there are several metastatic pulmonary nodules. Hypermetabolic uptake is noted in the largest of these which is located in the left lower lobe infrahilar region medially. Maximum standard uptake value in this left lower lobe pulmonary nodule is 6.73. There is mildly increased uptake in the other pulmonary nodules, ranging up to 1.89. Not quite in the hypermetabolic range. There is hypermetabolic uptake in a small subpleural nodule in the right posterior chest consistent with a sub pleural metastatic deposit. Maximum standard uptake value here is 3.40. This nodule measures approximately a cm. There is no abnormal hypermetabolic uptake in the axial skeleton. Lower extremity acquisition is unremarkable. No abnormal cutaneous uptake is seen. In the abdomen and pelvis, normal hepatic, splenic, gastrointestinal FDG accumulation is seen. No abnormal hypermetabolic uptake is appreciated in the abdomen or pelvis. No abnormal hepatic uptake is seen. No abnormal lymph node uptake is seen in the pelvis or abdomen. IMPRESSION: Findings consistent with metastatic disease to the brain and lungs. There is 1 subpleural chest wall metastatic nodule suspected as well. <Electronically signed by Arnie Luz > 01/12/21 0925
== END ==
LOC: M PLARAD 15:22
PROVIDERS: ATTEND Internal Medicine Medical Oncology
DX: C43.8 Malignant melanoma of overlapping sites of skin (principal)
CPT/HCPCS: 78816; A9552

== ENCOUNTER → 2021-01-25 | Outpatient (CLI) | payer MEDICARE ==
[~2021-01-25] MED LIST changes: +HOME MED LIST COMPLETE! XX SCH; +LANTINJ4 SC; +LIDOCAINE 1% MDV 20ML VIAL As Ordered ONE; +MELA3TAB30 PO; +NOVOINJ3 SC; +QUET1TAB17 PO; +SODIUM BICARBONATE 8.4% INJ 50MEQ 50 ML VIAL As Ordered ONE
[2021-01-25 09:20] LABS: INR 1.02; PROTHROMBIN TIME 13.8 SECONDS (12.7-14.5)
[2021-01-25 10:12] VITALS: BP 131/76
== END ==
LOC: M IRPRO 08:25
PROVIDERS: ATTEND Internal Medicine Medical Oncology
DX: R91.8 Other nonspecific abnormal finding of lung field (principal)